=== PATIENT | female | born 1980 | race Caucasian/White ===

== ENCOUNTER 2018-02-03 23:00 | Emergency (ER) | payer OTHER ==
[~2018-02-03] VITALS: Ht 165.1 cm; Wt 68.0 kg
[2018-02-03 23:03] VITALS: BP 125/85; Ht 165.1 cm; Wt 68.0 kg
== END 2018-02-03 23:14 | disposition other institution (70) ==
LOC: ED 23:00
DX: Z02.89 Encounter for other administrative examinations (principal)